=== PATIENT | female | born 1940 | race American Indian/Alaskan Native ===

== ENCOUNTER 2022-07-02 11:51 | Inpatient (IN) | payer MEDICARE, OTHER ==
[~2022-07-02] VITALS: Ht 162.6 cm; Wt 68.2 kg
[2022-07-02 12:13] LABS: BASOPHILS ABSOLUTE AUTO 0.03 K/mm3 (0.00-0.23); BASOPHILS PERCENT AUTO 1 % (0-2); EOSINOPHILS ABSOLUTE AUTO 0.08 K/mm3 (0.00-0.68); EOSINOPHILS PERCENT AUTO 1 % (0-6); Hematocrit 35.5 % (33.0-51.0); Hemoglobin 11.7 g/dL (11.5-16.0); IMMATURE GRAN ABSOLUTE AUTO 0.02 K/mm3 (0.00-0.10); IMMATURE GRAN PERCENT AUTO 0 % (0-1); LYMPHOCYTES ABSOLUTE AUTO 1.13 K/mm3 (0.84-5.20); LYMPHOCYTES PERCENT AUTO 19 % (21-46); MONOCYTES ABSOLUTE AUTO 0.48 K/mm3 (0.16-1.47); MONOCYTES PERCENT AUTO 8 % (4-13); Mean Corpuscular Volume 94 fL (80-100); Mean Platelet Volume 12.1 fL (9.1-12.4); NEUTROPHILS ABSOLUTE AUTO 4.22 K/mm3 (1.96-9.15); NEUTROPHILS PERCENT AUTO 71 % (41-73); Platelet Count 152 K/mm3 (150-400); RDW Coefficient Variation 14.6 % (11.7-14.2); RDW Standard Deviation 49.8 fL (35.1-46.3); Red Blood Cell Count 3.77 M/mm3 (3.80-5.20); White Blood Cell Count 5.96 K/mm3 (4.00-11.30)
[2022-07-02] MEDS ORDERED: WARF1 PO (12:39)
[2022-07-02 12:46] LABS: Prothrombin Time Results 48.4 Sec (9.7-11.5)
[2022-07-02 13:04] LABS: Albumin, Blood 3.4 g/dL (3.4-5.0); Albumin/Globulin Ratio 1.1 (0.8-1.8); Bilirubin, Total 0.7 mg/dL (0.1-1.0); Calcium, Blood 8.4 mg/dL (8.5-10.1); Creatinine, Blood 1.3 mg/dL (0.40-1.00); Magnesium, Blood 1.9 mg/dL (1.6-2.4); Total Protein, Blood 6.4 g/dL (6.4-8.2)
[2022-07-02 13:04] LABS: International Normalized Ratio 5.13
--- NOTE | 2022-07-02 16:59 | NUR ---
Report recieved from ED nurse. Pt to transfer to PCU 17
[2022-07-02 18:35] LABS: Digoxin (Lanoxin) 1.15 ug/mL (0.80-2.00)
--- NOTE | 2022-07-02 18:39 | NUR ---
Transfer to PCU 17 via bed Pt A/O X4, states correct location/event. States falling while cleaning, pt states I blacked out." "Was awake one moment and on floor next." Pt states having INR checked once a week at outside clinic. Unable to provide home medication, "someone will bring in list. HR 35-40, juncational. BP stable. Dr. Mendoza at bedside, order recieved for 0.5 mg of atropine, HR 40-41 after, see emar. Pt denies having CP. Ulcer on right lower extrem, see picture in chart. Right elbow wound from fall, see picture in chart, no skin tear. Dired blood on right posterior head. Crackles in lower bases, SPO2 > 95%. On RA. BT active. Daughter Marlyn Martins, and Ed at bedside. Dr. Mendoza answered all questions.
--- NOTE | 2022-07-02 19:11 | NUR ---
Shift summary/ Provider at bedside, Dr. Mendoza Provider states Atropine is not effective for rate control. Pads placed at bedside per provider request. Digixon reversal to be ordered as well per provider. Pt and family asked to bring medication list from home when possible. Tentative medication list discussed with patient based on [facility] list in chart. Dr. Mendoza also provided with this list. Daughter Sarah at bedside for the night. Will report to nightshift. Pt made aware of telling staff of any symptoms of bradcardia. HR continues to be in 40's. SPO2 100%. BP stable. Pt has extensive wounds on right lower extrem, right elbow and posterior right side of head. See pictures in chart.
[2022-07-02 20:33] LABS: Source, Urine Clean Catch
[2022-07-02 20:38] LABS: Bilirubin, Urine Neg (Neg); Blood, Urine 3+ (Neg); Glucose Qualitative, Urine Neg (Neg); Ketones, Urine Neg (Neg); Leukocyte Esterase, Urine 1+ (Neg); Nitrite, Urine Neg (Neg); Protein, Urine 1+ (Neg); Urobilinogen, Urine NORM (Normal)
[2022-07-02 20:53] LABS: Appearance, Urine Hazy (Clear); Color, Urine Yellow (P-Yellow)
[2022-07-02 20:55] LABS: Bacteria Mod /hpf; Mucus Light (0-Heavy); Squamous Epithelial Cells Rare /hpf (Few); Transitional Epithelial Cells Rare /hpf (0-Rare); White Blood Cells, Urine 0-2 /hpf (0-5)
--- NOTE | 2022-07-03 02:00 | NUR ---
TELE REPORT 4.6 SEC PAUSE REPORTED BY COUNTER STITCHER
[2022-07-03 04:18] LABS: BASOPHILS ABSOLUTE AUTO 0.03 K/mm3 (0.00-0.23); BASOPHILS PERCENT AUTO 1 % (0-2); EOSINOPHILS ABSOLUTE AUTO 0.15 K/mm3 (0.00-0.68); EOSINOPHILS PERCENT AUTO 3 % (0-6); Hematocrit 34.5 % (33.0-51.0); Hemoglobin 11.3 g/dL (11.5-16.0); IMMATURE GRAN ABSOLUTE AUTO 0.02 K/mm3 (0.00-0.10); IMMATURE GRAN PERCENT AUTO 0 % (0-1); LYMPHOCYTES ABSOLUTE AUTO 1.59 K/mm3 (0.84-5.20); LYMPHOCYTES PERCENT AUTO 26 % (21-46); MONOCYTES PERCENT AUTO 10 % (4-13); Mean Corpuscular HGB 30.5 pg (26.0-34.0); Mean Corpuscular HGB Conc 32.8 g/dL (31.5-36.5); Mean Corpuscular Volume 93 fL (80-100); Mean Platelet Volume 11.1 fL (9.1-12.4); NEUTROPHILS ABSOLUTE AUTO 3.66 K/mm3 (1.96-9.15); NEUTROPHILS PERCENT AUTO 61 % (41-73); Platelet Count 140 K/mm3 (150-400); RDW Coefficient Variation 14.4 % (11.7-14.2); RDW Standard Deviation 49.6 fL (35.1-46.3); White Blood Cell Count 6.05 K/mm3 (4.00-11.30)
[2022-07-03 04:32] LABS: International Normalized Ratio 3.52
[2022-07-03] MEDS ORDERED: FUROSEMIDE40 MG PO (04:33)
[2022-07-03 04:41] LABS: Bun/Creatinine Ratio 36.8 (12.0-20.0); Calcium, Blood 8.7 mg/dL (8.5-10.1); Creatinine, Blood 1.17 mg/dL (0.40-1.00); Potassium, Blood 4.1 mmol/L (3.5-5.5)
--- NOTE | 2022-07-03 05:24 | NUR ---
CALLED DR VALLECILLO REGARDING PT'S HR. COMMENTED TO THAT PT HAD A 4.6 SEC PAUSE AT APPROX. 0200 WAS IN JUNCTIONAL. THEN A TACHY RUN, BACK TO JUNCTIONAL IN THE 40'S UNTIL APPROX 0515 WHERE SHE BECAME SINUS TACH. ORDERS TO TRANSFER TO ICU AND PLACE TRANDERMAL PATCHES WITH ZOLL ON STANDBY.
--- NOTE | 2022-07-03 06:00 | NUR ---
IN-HOUSE TRANSFER PT TRANSFERED TO ICU-5, WITH ALL BELONGINGS VIA BED. DAUGHTER AT BEDSIDE. NURSE AND STAFF IN ROOM WAITING FOR PT.
[2022-07-03] MEDS ORDERED: ATEN25 PO (06:18)
[2022-07-03] MEDS ORDERED: ALLOPURINOL100 M1 PO (06:19)
[2022-07-03] MEDS ORDERED: DIGOX125 MC1 PO (06:19)
[2022-07-03] MEDS ORDERED: [UNRECOGNIZED DRUG - OTHER] (06:20)
[2022-07-03] MEDS ORDERED: Cetirizine HCl10 MG PO (06:20)
[2022-07-03] MEDS ORDERED: THERA-D2000 UNIT PO (06:21)
[2022-07-03] MEDS ORDERED: Simvastatin20 MG PO (06:21)
[2022-07-03] MEDS ORDERED: Potassium Chlo20 ME1 PO (06:22)
--- NOTE | 2022-07-03 06:41 | NUR ---
REPORT RECIEVED FROM WILFREDO GIL. PATIENT TO ICU 5 FROM PCU AT 0600. SLID TO BED. DAUGHTER AT BEDSIDE. PATIENT IS ALERT AND ORIENTED X4. 02 SATS 95 % ON RA, PATIENT DENIES SOB. HR A.FIB 80s-110. ZOLL AT BEDSIDE AND PADS ON PATIENT PER DR. VALLECILLO. BP STABLE. PATIENT DENIES CP/PRESSURE. PER REPORT PATIENT HAS EPISODES OF BRADYCARDIA, AM EKGs IN FRONT OF CHART. SEE SHIFT ASSESSMENT FOR MORE INFORMATION.
[2022-07-03 07:22] LABS: SARS-Cov-2 (COVID-19) PCR, MMC NEGATIVE (NEGATIVE)
--- NOTE | 2022-07-03 08:00 | NUR ---
PT A&OX4-REPORTS "MILD" HEADACHE. DENIES NEED FOR PAIN MED AT THIS TIME. THERE IS A SCAB AND SWELLING NOTED TO THE BACK OF PT HEAD. NO NEURO DEFICITS. ECG SHOWS AFIB WITH RATE 70-100'S. BP 140'S/80'S. NO NOTED EDEMA. LOWER EXTREMITIES APPEAR BROWN-VENOUS STATIS NOTED. RIGHT LOWER EXTREMITY WITH STATIS ULCER THAT PT STATES HAS BEEN THER FOR SEVERAL YEARS AND NEVER SEEMS TO COMPLETELY HEAL. WOUND PICS ON CHART.MEPITEL DRESSING, KERLIX, AND COBAN IN PLACE. DP/PT PULSES FAINT-PT HAS SIGNIFICANT VARICES TO BOTH LOWER EXTREMITIES. HEART SOUNDS IRREGULAR WITH MURMUR AUSCULTATED. LUNGS CLEAR. SATS>90%. NO NOTED COUGH. PT DENIES CP OR SOB. NPO FOR POSSIBLE PACER PLACEMENT LATER TODAY. PT DENIES GI DISTRESS. EXTENDED DWELL CATHETER PLACED AND PT/PTT, TYPE AND SCREEN SENT. PT FAMILY AT BEDSIDE-UPDATE GIVEN.
[2022-07-03 08:54] LABS: International Normalized Ratio 2.91
[2022-07-03 09:11] LABS: Prothrombin Time Results 28.5 Sec (9.7-11.5)
--- NOTE | 2022-07-03 09:30 | NUR ---
DR. ROTHMAN HERE TO SEE PT-UPDATE GIVEN.
--- NOTE | 2022-07-03 09:46 | NUR ---
ECHO IN PROGRESS.
--- NOTE | 2022-07-03 10:29 | NUR ---
DR. ARRIAGA GIVEN UPDATE. AWARE THAT INR 2.91. ORDER GIVEN FOR CARDIAC DIET, NPO AFTER MIDNIGHT TONIGHT, AND REPEAT INR IN AM.
--- NOTE | 2022-07-03 12:05 | NUR ---
PT DENIES CP OR SOB. ECG CONTINUES AFIB WITH RATE 80-100'S. SBP TRENDING 100-120'S. LUNCH TRAY PROVIDED. CALL LIGHT WITHIN REACH.
--- NOTE | 2022-07-03 16:30 | NUR ---
PT CONTINUES TO DENY CP OR SOB. ECG CONTINUES AF WITH RATE 90-110'S. SBP 110-120'S. TOLERATING CARDIAC DIET WELL. PT HAS HISTORY OF LOOSE STOOLS AT HOME AND HER GLUTEAL FOLD AND ANUS APPEAR RED AND EXCORIATED-CLEANSED WITH SOAP AND WATER AND CALAZIME APPLIED. ENCOURAGE PT TO STAY OFF OF HER BACKSIDE MUCH POSSIBLE. ASSISTED PT WITH TURNING TO RIGHT SIDE. CALL LIGHT WITHIN REACH.
--- NOTE | 2022-07-03 17:00 | NUR ---
DR. ARRIAGA HERE TO SEE PT-UPDATE GIVEN. INFORMED CONSENT OBTAINED FOR PPM 07/04/22 AM. PT TO BE NPO AFTER MIDNOC.
--- NOTE | 2022-07-03 17:59 | NUR ---
NO NOTED BRADYCARDIA OR PAUSES THIS SHIFT. PT CONTINUES TO DENY CHEST PAIN OR SHORTNESS OF BREATH. HR 100-120'S AFIB. SBP 110-120'S. SATS>90% ON RA. PT TOLERATING CARDIAC DIET WELL. VOIDING VIA BEDPAN-PT CALLS FOR ASSIST PRN. CALAZIME TO EXCORIATED AREA TO PT BACKSIDE. ENCOURAGED FREQUENT REPOSITIONING AND MINIMAL TIME SUPINE. PT VERBALIZES BOTH UNDERSTANDING AND COOPERATION. PHARMACY HAS BEEN CONSULTED FOR WARFARIN DOSING. INFORMED CONSENT FOR PPM PLACEMENT 07/04/22.
--- NOTE | 2022-07-03 20:30 | NUR ---
ASSUMED CARE PT IS ALERT AND ORIENTED. SITTING IN BED RELAXING AND READY FOR SLEEP. MONITOR SHOWING AFIB UP INTO THE 130'S WHILE TALKING AND BACK DOWN INTO 90'S WHILE RESTING. PT IS ON RA WITH NO COMPLAINTS OF SOB OR CP. VERBALIZED UNDERSTANDING OF NPO STATUS AT MIDNIGHT. PACERS PADS IN PLACE.
--- NOTE | 2022-07-03 23:47 | NUR ---
PATIENT AWAKE C/O RIGHT LOWER LEG ITCHING, PATIENT REMOVED DRESSING ON LEG AND SCRATCHING RED AREA OPENING UP A SMALL 1X1 CM ROUND AREA. AREA CLEANSED WITH WOUND COLLABORATIVE TEACHER AND COVERED WITH FOAM DRESSING AND KERLIX GAUZE TO KEEP IN PLACE PATIENT CONTINUES TO C/O ITCHING FEELING TO RIGHT ANKLE, DRESSING ADJUSTED AND TYLENOL GIVEN
[2022-07-04 04:05] LABS: BASOPHILS ABSOLUTE AUTO 0.03 K/mm3 (0.00-0.23); BASOPHILS PERCENT AUTO 1 % (0-2); EOSINOPHILS ABSOLUTE AUTO 0.11 K/mm3 (0.00-0.68); EOSINOPHILS PERCENT AUTO 2 % (0-6); Hemoglobin 12.2 g/dL (11.5-16.0); IMMATURE GRAN ABSOLUTE AUTO 0.01 K/mm3 (0.00-0.10); IMMATURE GRAN PERCENT AUTO 0 % (0-1); LYMPHOCYTES ABSOLUTE AUTO 1.48 K/mm3 (0.84-5.20); LYMPHOCYTES PERCENT AUTO 26 % (21-46); MONOCYTES ABSOLUTE AUTO 0.55 K/mm3 (0.16-1.47); MONOCYTES PERCENT AUTO 10 % (4-13); Mean Corpuscular HGB 30.6 pg (26.0-34.0); Mean Corpuscular Volume 93 fL (80-100); Mean Platelet Volume 10.6 fL (9.1-12.4); NEUTROPHILS ABSOLUTE AUTO 3.47 K/mm3 (1.96-9.15); NEUTROPHILS PERCENT AUTO 62 % (41-73); Platelet Count 149 K/mm3 (150-400); RDW Coefficient Variation 14.3 % (11.7-14.2); RDW Standard Deviation 48.5 fL (35.1-46.3); Red Blood Cell Count 3.99 M/mm3 (3.80-5.20); White Blood Cell Count 5.65 K/mm3 (4.00-11.30)
[2022-07-04 04:20] LABS: Albumin, Blood 3.3 g/dL (3.4-5.0); Anion Gap 6 mmol/L (6-16); Blood Urea Nitrogen 21 mg/dL (8-24); CO2, Blood 24 mmol/L (21-32); Calcium, Blood 9.1 mg/dL (8.5-10.1); Chloride, Blood 112 mmol/L (98-108); Creatinine, Blood 0.73 mg/dL (0.40-1.00); Glomerular Filtration Rate 83 (60-); Glucose, Blood 93 mg/dL (70-99); Phosphorus, Blood 2.4 mg/dL (2.5-4.9); Potassium, Blood 3.8 mmol/L (3.5-5.5); Sodium, Blood 142 mmol/L (136-145)
[2022-07-04 04:23] LABS: International Normalized Ratio 1.7; Prothrombin Time Results 17.2 Sec (9.7-11.5)
--- NOTE | 2022-07-04 04:32 | NUR ---
PT FOUND STANDING AT SIDE OF BED, APPEARS CONFUSED YET EASILY REORIENTED. BED ALARM REMAINS ON.
--- NOTE | 2022-07-04 06:37 | NUR ---
SHIFT SUMMARY PT RESTLESS THROUGH THE NIGHT WITH FREQUENT LOOSE BOWEL MOVEMENTS, WHICH PT VERBALIZED IS NORMAL FOR HER. PT REMAINS ON BEDREST DUE TO HX OF SYNCOPE. PLANNED PACEMAKER IMPLANTED TODAY. PT HAS CLEAR LUNG SOUNDS WITH CRACKLES IN THE BASES. SPO2 >94% ON RA. PT IS AFIB WITH HR 80-90S AND GOING UP TO 140S WITH EXERTION.
--- NOTE | 2022-07-04 08:00 | NUR ---
PT IS AWAKE AND ALERT, BUT VERY FORGETFUL THIS AM AND HALLUCINATING AT TIMES. PT STATES THAT "THERE ARE CATS ALL AROUND THE POND OUTSIDE HER WINDOW." PT RE-ORIENTS WITH CUES. ECG SHOWS AFIB WITH RATE 80'S. BP STABLE. NO NOTED EDEMA. DP/PT PULSES FAINT. STATIS CHANGES TO LOWER EXTREMITIES UNCHANGED. WOUND CARE COMPLETED TO RIGHT LOWER EXTREMITY STATIS ULCER. ACCORDING TO MANAGER PHARMACEUTICAL, PT SCRATCHED THE LEG LAST NIGHT LEAVING HER WITH 2 OPEN AREAS-ONE TO THE LANGFORD AND ONE NEAR THE ANKLE. WOUND CLEANSED, MEPITEL APPLIED, COVERED WITH ABD, KERLIX, AND COBAN. LUNGS CLEAR. NO SOB OR COUGH. SATS>90% NO GI DISTRESS. PT VOIDS AND STOOLS VIA BEDPAN-INCONTINENT AT TIMES. PT ANUS AND GLUTEAL FOLD STILL EXCORIATED. PT GIVEN BED BATH, PARTIAL LINEN CHANGE COMPLETED, SKIN CARE DONE-CALAZIME TO EXCORIATED AREA-PT REPOSITIONED TO RIGHT SIDE. ENCOURAGE PT TO TURN EVERY [address] ARRIAGA UPDATED OF INR OF 1.7. PPM ON HOLD. PHARMACY CONSULTED FOR HEPARIN. KENYA FROM PHARMACY AWARE. PT AND FAMILY UPDATED TO PLAN OF CARE. CALL LIGHT WITHIN REACH.
--- NOTE | 2022-07-04 09:20 | NUR ---
HEPARIN DRIP INITIATED @ 15 UNITS/KG/HR-CONFIRMED WITH LOUISE JEFFERS.
--- NOTE | 2022-07-04 09:34 | NUR ---
Spiritual Care - Nurse/ Pts. family referral Pt. is awake in bed and welcomes my visit. Pts. family (two daughters are present, one is on speaker phone) requests prayer for the Pt. Pt. is unsettled about her blood coagulation (INR) to be controlled so she can have pacemaker procedure. Pt. is pleasant and has displays evidence of having good support from her family. Prayed with Pt. and family. Pt. and family verbalize gratitude for the spiritual care visit.
--- NOTE | 2022-07-04 11:45 | NUR ---
PT REMAINS DISORIENTED AND CONFUSED AT TIMES. PT STILL FOLLOWING DIRECTIONS AND COOPERATIVE WITH CARE. SHE HAS ATTEMPTED TO GET OOB AND BED ALARM IS ON. ECG CONTINUES AFIB WITH RATE 70-80'. BP REMAINS STABLE. NO CP OR SOB. HEPARIN DRIP @ 15 UNITS/KG/HR. COUMADIN 1.5 MG PO GIVEN PER PHARMACY ORDER-SEE EMAR.
--- NOTE | 2022-07-04 12:00 | NUR ---
DR. FOREMAN HERE TO SEE PT. FULL UPDATE GIVEN. DR. FOREMAN SPOKE WITH PT DAUGHTER REGARDING PLAN OF CARE. PREP PT FOR TRIALYSIS CATHETER PLACEMENT. KASHMIR IN DIALYSIS MADE AWARE. DR. NIÑO TO SEE PT LATER TODAY. PT EYES OPEN AND GRIMACING. MED WITH FENTANYL 50 MCG IVP X 1 FOR PAIN/SEDATION ADJUNCT-PRIOR TO DIALYSIS CATHETER PLACEMENT-SEE EMAR.
--- NOTE | 2022-07-04 14:22 | NUR ---
DR. ROTHMAN MADE AWARE OF POSITIVE URINE CULTURE. ANTIBIOTICS TO BE ORDERED BY DR. ROTHMAN.
--- NOTE | 2022-07-04 15:30 | NUR ---
PTT DRAWN VIA EXTENDED DWELL CATHETER AND SENT TO LAB. 1ST DOSE OF UNASYN GIVEN.
--- NOTE | 2022-07-04 16:00 | NUR ---
PT REMAINS CONFUSED, BUT NO LONGER HALLUCINATING. SHE IS ABLE TO COMMUNICATE HER NEEDS AT THIS TIME AND HAS BEEN UTILIZING CALL LIGHT. ECG CONTINUES AFIB WITH RATE 70'S. BP STABLE. NO CP OR SOB. PT TOLERATING CARDIAC DIET WELL. PT HAS FREQUENT LOOSE STOOLS-SHE STATES THAT THIS IS HER NORM. KYLEE AREA, ANUS, AND GLUTEAL FOLD EXCORIATED AND CALAZIME APPLIED. PTT THERAPEUTIC-HEPARIN CONTINUES @ 15 UNIT/KG/HR. NEXT PTT @ 2200. PT SPOUSE AND FAMILY MEMBERS HAVE BEEN UPDATED THROUGH OUT THE DAY.
--- NOTE | 2022-07-04 22:44 | NUR ---
ASSUMED CARE PT IS LYING IN BED ALERT AND ORIENTED WITH INTERMITTANT CONFUSION. PT OCCASIONALLY DOES NOT RESPOND APPROPRIATELY TO QUESTIONS AND STATED, "DO YOU SEE THAT CAT THERE?" BUT SAID "I KNOW" WHEN TOLD THAT IT WAS A BLANKET. PT'S HR'S IN THE 80-90'S AND UP INTO THE 120S WITH EXERTION. PT HR TACHYED UP TO 200 WHEN TRYING TO GET OUT OF BED, BUT RAPIDLY CAME BACK DOWN WHEN BACK IN BED. PT HAS CLEAR LUNG SOUNDS WITH DIM BASES AND CRACKLES IN LEFT BASE. PT'S DAUGHTER CALLED AT 2230 WITH CONCERNS ABOUT PT'S INCREASING CONFUSION. INFORMED DAUGHTER THAT EXTENDED HOSPITAL STAY+UTI CAN INCREASE CONFUSION.
--- NOTE | 2022-07-05 00:56 | NUR ---
UPDATE PT WOKE SEVERAL TIMES THROUGHOUT THE NIGHT VERBALIZING THE DESIRE TO GO HOME. WAS ABLE TO REORIENT EACH TIME FOR PURPOSE OF HOSPITAL STAY AND MENTIONED FAMILY COMING IN THE NEXT MORNING TO HELP ALLIEVE AGITATION.
--- NOTE | 2022-07-05 04:28 | NUR ---
UPDATE PT IS HALLUCINATING CATS, CHILDREN, AND SPIDERS.
[2022-07-05 04:46] LABS: BASOPHILS ABSOLUTE AUTO 0.02 K/mm3 (0.00-0.23); BASOPHILS PERCENT AUTO 0 % (0-2); EOSINOPHILS ABSOLUTE AUTO 0.13 K/mm3 (0.00-0.68); EOSINOPHILS PERCENT AUTO 3 % (0-6); Hematocrit 36.5 % (33.0-51.0); IMMATURE GRAN ABSOLUTE AUTO 0.02 K/mm3 (0.00-0.10); IMMATURE GRAN PERCENT AUTO 0 % (0-1); LYMPHOCYTES ABSOLUTE AUTO 1.62 K/mm3 (0.84-5.20); LYMPHOCYTES PERCENT AUTO 32 % (21-46); MONOCYTES ABSOLUTE AUTO 0.49 K/mm3 (0.16-1.47); MONOCYTES PERCENT AUTO 10 % (4-13); Mean Corpuscular HGB 30.5 pg (26.0-34.0); Mean Corpuscular HGB Conc 32.9 g/dL (31.5-36.5); Mean Corpuscular Volume 93 fL (80-100); Mean Platelet Volume 10.3 fL (9.1-12.4); NEUTROPHILS ABSOLUTE AUTO 2.85 K/mm3 (1.96-9.15); NEUTROPHILS PERCENT AUTO 56 % (41-73); Platelet Count 146 K/mm3 (150-400); RDW Coefficient Variation 14.6 % (11.7-14.2); Red Blood Cell Count 3.94 M/mm3 (3.80-5.20); White Blood Cell Count 5.13 K/mm3 (4.00-11.30)
[2022-07-05 05:01] LABS: Albumin, Blood 3.1 g/dL (3.4-5.0); Anion Gap 5 mmol/L (6-16); Blood Urea Nitrogen 12 mg/dL (8-24); Bun/Creatinine Ratio 17.8 (12.0-20.0); CO2, Blood 24 mmol/L (21-32); Calcium, Blood 8.3 mg/dL (8.5-10.1); Chloride, Blood 112 mmol/L (98-108); Creatinine, Blood 0.67 mg/dL (0.40-1.00); Glomerular Filtration Rate 88 (60-); Glucose, Blood 90 mg/dL (70-99); Phosphorus, Blood 2.1 mg/dL (2.5-4.9); Potassium, Blood 3.7 mmol/L (3.5-5.5); Sodium, Blood 141 mmol/L (136-145)
[2022-07-05 05:08] LABS: International Normalized Ratio 1.48; Prothrombin Time Results 15.1 Sec (9.7-11.5)
--- NOTE | 2022-07-05 06:19 | NUR ---
SHIFT SUMMARY PT REMAINS CONFUSED AND HAS BEEN HALLUCINATING SPIDERS, CHILDREN, AND CATS THROUGHOUT THE NIGHT. PT'S BP HAS REMAINED STABLE WITH HR AFIB IN THE 70-80'S, GOING UP INTO THE 100S WITH EXERTION. LUNG SOUNDS ARE CLEAR WITH CRACKLES IN THE LEFT LOWER LOBES AND SPO2 >95 ON RA. PT IS REORIENTABLE WHEN DISCUSSING WHY PT IS HERE AND PT'S FAMILY. PT'S HEPARIN HAS BEEN TITRATED DOWN TO 13MCG/KG/HR. PT DID NOT SLEEP WELL THROUGHOUT NIGHT, WAKING FREQUENTLY AND ATTEMPTING TO GET OUT OF BED. PT HAD LOOSE STOOLS SEVERAL TIMES THROUGHOUT THE NIGHT AND THIS RN WAS INFORMED BY PREVIOUS NURSE THAT SHE DID NOT WANT THIS RN TO HELP WITH USING THE RESTROOM.
--- NOTE | 2022-07-05 13:37 | NUR ---
REASSESSMENT PT HAS BEEN RESTING IN BED FOR MOST OF THE MORNING. SHE GETS UP TO THE COMMODE WITH ASSISTANCE AND THEN WANTS BACK TO BED TO REST. BEFORE GETTING UP TO THE COMMODE THE FIRST TIME, THE RISKS OF GETTING OUT OF BED BECAUSE OF HER HEART RHYTHM AND PAUSES EARLIER IN HER STAY WERE REVIEWED WITH PT AND HER FAMILY THAT WAS AT THE BEDSIDE. THEY ALL EXPRESSED UNDERSTANDING OF THE RISKS AND PT STILL INSISTED ON GETTING UP TO THE COMMODE INSTEAD OF USING THE BEDPAN. PT IS ALERT, ORIENTED TO PERSON AND DATE. SHE IS CONFUSED, TALKING ABOUT PEOPLE VISITING LAST NIGHT AND THINGS SHE THINKS HAPPENED OVERNIGHT, BUT DIDN'T. LUGNS ARE CLEAR, RA. AFIB WITH RATE IN THE 70S, BP STABLE. OK'D TO EAT BY DR. ARRIAGA AND TOLERATING DIET. VOIDING, BUT UNABLE TO COUNT VOLUME IT MIXES WITH HER LOOSE STOOLS. DRESSING OVER R LANGFORD CHANGED THIS MORNING. PT'S AND DAUGHTERS HAVE BEEN AT THE BEDSIDE THROUGHOUT THE MORNING.THEY WERE UPDATED BY DR. ARRIAGA AND DR. ROTHMAN. AWAITING A BED TO BE AVAILABLE AT [facility]. DR. ROTHMAN OK'D PT TO BE PCU STATUS.
--- NOTE | 2022-07-05 17:11 | NUR ---
SHIFT SUMMARY PT CONTINUES TO BE CONFUSED. ALERT AND ORIENTED TO PERSON AND DATE, BUT GETS CONFUSED WHERE SHE IS. DESPITE REORIENTATION SHE THINKS THERE IS A YARD SALE GOING ON OUTSIDE HER ROOM AND THINKS HER BED IS A BIG HEATER BECAUSE OF AN ORANGE LIGHT ON IT. SHE HAS ALSO BEEN HALLUCINATING THIS AFTERNOON SEEING SPIDERS ON THE WALL WHEN THERE AREN'T ANY. PT HAS STILL BEEN COOPERATIVE EXCEPT FOR NOT GETTING UP WITHOUT HELP. TAB ALARM ON PT WHIEL IN CHAIR AND BED ALARM WHILE IN BED. HER LUNGS ARE CLEAR, RA. REMAINS IN AFIB, RATE IN THE 80S. BP STABLE. SHE HAS HAD SOME CRAMPING IN HER L FOOT, HEATING PAD APPLIED. VOIDING IN THE COMMODE AND LOOSE STOOLS. STARTED BANANTROL TO TRY AND HELP WITH THE DIARRHEA. FAMILY HAS BEEN AT THE BEDSIDE THROUGHOUT THE DAY AND HAS BEEN UPDATED. STILL WAITING ON BED AT [facility].
[2022-07-06 03:46] LABS: BASOPHILS ABSOLUTE AUTO 0.02 K/mm3 (0.00-0.23); BASOPHILS PERCENT AUTO 0 % (0-2); EOSINOPHILS ABSOLUTE AUTO 0.15 K/mm3 (0.00-0.68); EOSINOPHILS PERCENT AUTO 3 % (0-6); Hematocrit 34.2 % (33.0-51.0); Hemoglobin 11.2 g/dL (11.5-16.0); IMMATURE GRAN ABSOLUTE AUTO 0.02 K/mm3 (0.00-0.10); IMMATURE GRAN PERCENT AUTO 0 % (0-1); LYMPHOCYTES ABSOLUTE AUTO 1.48 K/mm3 (0.84-5.20); LYMPHOCYTES PERCENT AUTO 29 % (21-46); MONOCYTES ABSOLUTE AUTO 0.52 K/mm3 (0.16-1.47); MONOCYTES PERCENT AUTO 10 % (4-13); Mean Corpuscular HGB 30.6 pg (26.0-34.0); Mean Corpuscular HGB Conc 32.7 g/dL (31.5-36.5); Mean Corpuscular Volume 93 fL (80-100); Mean Platelet Volume 10.2 fL (9.1-12.4); NEUTROPHILS PERCENT AUTO 57 % (41-73); Platelet Count 142 K/mm3 (150-400); RDW Coefficient Variation 14.7 % (11.7-14.2); RDW Standard Deviation 50.5 fL (35.1-46.3); Red Blood Cell Count 3.66 M/mm3 (3.80-5.20); White Blood Cell Count 5.09 K/mm3 (4.00-11.30)
[2022-07-06 04:01] LABS: International Normalized Ratio 1.36
[2022-07-06 04:03] LABS: Albumin, Blood 2.8 g/dL (3.4-5.0); Anion Gap 3 mmol/L (6-16); Blood Urea Nitrogen 14 mg/dL (8-24); Bun/Creatinine Ratio 31.6 (12.0-20.0); CO2, Blood 25 mmol/L (21-32); Calcium, Blood 8.1 mg/dL (8.5-10.1); Chloride, Blood 112 mmol/L (98-108); Creatinine, Blood 0.44 mg/dL (0.40-1.00); Glomerular Filtration Rate 97 (60-); Glucose, Blood 93 mg/dL (70-99); Phosphorus, Blood 2.5 mg/dL (2.5-4.9); Potassium, Blood 3.8 mmol/L (3.5-5.5); Sodium, Blood 140 mmol/L (136-145)
--- NOTE | 2022-07-06 06:33 | NUR ---
END OF SHIFT REPORT PATIENT SLEPT THROUGHOUT SHIFT. INTERMITTENTLY ORIENTED TO SELF, DATE, AND PLACE. EASILY REORIENTED. FOLLOWS COMMANDS, NO DEFICITS NOTED. COMPLAINT OF SLIGHT HEADACHE, TENDER SPOT ON HEAD. PERRLA. RA, NO SOB LUNGS CLEAR. AFIB ON MONITOR WITH RATE IN THE 70'S. BP CONTROLLED. 2/2 PULSES. ONE LIQUID BM OVERNIGHT. NO UOP OVERNIGHT. BLADDER SCANNED FOR 317. VSS PLAN TO TRANSFER TODAY. RADHA JACOBSON RN
--- NOTE | 2022-07-06 09:09 | NUR ---
ASSUMED CARE REPORT FROM VIKI GIL AT 0700. PT RESTING IN BED. FAMILY AT BEDSIDE. A&OX 3. ANSWERS QUESTIONS APPROPRIATELY. KNOWS CARE PLAN. ANTICIPATING TRANSFER TO [facility] FOR PACEMAKER PLACEMENT. FAMILY UPDATED ON PROGRESS. PT DENIES SOB, DIZZINESS OR OTHER SYMPTOMS. AFIB ON MONITOR, RATE 70-80'S. BP STABLE. PT P/W/D. LUNGS CLEAR. PT C/O PAIN TO ARCH OF LEFT FOOT, CONCERNED SHE INJURED IN FALL. NO VISIBLE INJURIES NOTED. P/W/D. PPP. REPORTS INCREASED PAIN WHEN APPLYING PRESSURE. PT UP TO CHAIR. TOLERATED BREAKFAST WELL. HEPARIN GTT INFUSING, BRIDGING TO COUMDIN. DR ARRIAGA ROUNDED. WILL CONTINUE TO MONITOR UNTIL TRANSFER.
== END 2022-07-06 12:30 | disposition short-term general hospital (02) | DRG 309 ==
LOC: ER 11:51 → PCU 16:24 → ICUE 07-03 05:59
PROVIDERS: Emergency Medicine; Internal Medicine Cardiovascular Disease; ADMIT Family Medicine
DX: I49.5 Sick sinus syndrome (principal); E87.1 Hypo-osmolality and hyponatremia; I48.21 Permanent atrial fibrillation; N39.0 Urinary tract infection, site not specified; R55 Syncope and collapse; B95.2 Enterococcus as the cause of diseases classified elsewhere; Z79.01 Long term (current) use of anticoagulants; Z95.2 Presence of prosthetic heart valve; I27.20 Pulmonary hypertension, unspecified; E83.39 Other disorders of phosphorus metabolism; I34.0 Nonrheumatic mitral (valve) insufficiency; Y92.009 Unspecified place in unspecified non-institutional (private) residence as the place of occurrence of the external cause; W01.10XA Fall on same level from slipping, tripping and stumbling with subsequent striking against unspecified object, initial encounter; Z90.710 Acquired absence of both cervix and uterus; Z98.890 Other specified postprocedural states; Z88.5 Allergy status to narcotic agent; Z88.6 Allergy status to analgesic agent; D75.839 Thrombocytosis, unspecified; S09.90XA Unspecified injury of head, initial encounter; Z20.822 Contact with and (suspected) exposure to COVID-19
CPT/HCPCS: 36415; 70450; 71045; 72125; 73620; 80048; 80053; 80069; 80162; 81001; 83735; 83880; 84443; 84484; 85025; 85610; 85730; 86850; 86900; 86901; 87077; 87086; 87186; 93005; 93010; 93308; 93321; 96374; 96375; 99285-25; A9270; C1751; G0378; J0290; J0295; J0461; J0690; J1162; J1644; J7040; J7050; U0004

== ENCOUNTER 2022-07-09 11:52 | Emergency (ER) | payer MEDICARE, OTHER ==
[~2022-07-09] VITALS: Ht 160 cm; Wt 70.3 kg
[~2022-07-09 11:52] MED LIST: ALLOPURINOL100 M1 PO; ATEN25 PO; Cetirizine HCl10 MG PO; DIGOX125 MC1 PO; FUROSEMIDE40 MG PO; Potassium Chlo20 ME1 PO; Simvastatin20 MG PO; THERA-D2000 UNIT PO; WARF1 PO; [UNRECOGNIZED DRUG - OTHER]
[2022-07-09 12:22] LABS: BASOPHILS ABSOLUTE AUTO 0.03 K/mm3 (0.00-0.23); BASOPHILS PERCENT AUTO 0 % (0-2); EOSINOPHILS ABSOLUTE AUTO 0.09 K/mm3 (0.00-0.68); EOSINOPHILS PERCENT AUTO 1 % (0-6); Hematocrit 30.4 % (33.0-51.0); Hemoglobin 10.1 g/dL (11.5-16.0); IMMATURE GRAN ABSOLUTE AUTO 0.04 K/mm3 (0.00-0.10); IMMATURE GRAN PERCENT AUTO 0 % (0-1); LYMPHOCYTES ABSOLUTE AUTO 1.03 K/mm3 (0.84-5.20); LYMPHOCYTES PERCENT AUTO 9 % (21-46); MONOCYTES ABSOLUTE AUTO 0.77 K/mm3 (0.16-1.47); MONOCYTES PERCENT AUTO 7 % (4-13); Mean Corpuscular HGB 31.6 pg (26.0-34.0); Mean Corpuscular HGB Conc 33.2 g/dL (31.5-36.5); Mean Corpuscular Volume 95 fL (80-100); NEUTROPHILS ABSOLUTE AUTO 9.24 K/mm3 (1.96-9.15); NEUTROPHILS PERCENT AUTO 82 % (41-73); Platelet Count 162 K/mm3 (150-400); RDW Coefficient Variation 15.4 % (11.7-14.2); RDW Standard Deviation 52.7 fL (35.1-46.3)
[2022-07-09 12:37] LABS: Albumin, Blood 3.3 g/dL (3.4-5.0); Bilirubin, Total 0.8 mg/dL (0.1-1.0); Bun/Creatinine Ratio 18.4 (12.0-20.0); Calcium, Blood 8.9 mg/dL (8.5-10.1); Creatinine, Blood 0.71 mg/dL (0.40-1.00); Globulin, Blood 3.4 g/dL (2.2-4.0); Potassium, Blood 4.5 mmol/L (3.5-5.5); Total Protein, Blood 6.7 g/dL (6.4-8.2)
[2022-07-09] MEDS ORDERED: OXYC5 PO (12:41)
== END 2022-07-09 13:04 | disposition home or self-care (01) ==
LOC: ER 11:52
PROVIDERS: Student in an Organized Health Care Education/Training Program
DX: L76.22 Postprocedural hemorrhage of skin and subcutaneous tissue following other procedure (principal); M25.552 Pain in left hip; R10.9 Unspecified abdominal pain; Y83.8 Other surgical procedures as the cause of abnormal reaction of the patient, or of later complication, without mention of misadventure at the time of the procedure; Z95.2 Presence of prosthetic heart valve; Z95.0 Presence of cardiac pacemaker
CPT/HCPCS: 80053; 85025

== ENCOUNTER 2022-07-15 12:34 | Emergency (ER) | payer MEDICARE, OTHER ==
[~2022-07-15] VITALS: Ht 193 cm; Wt 68.0 kg
[~2022-07-15 12:34] MED LIST changes: +OXYC5 PO
[2022-07-15] MEDS ORDERED: LIDOCAINE1 EACH TOP (13:17)
[2022-07-15] MEDS ORDERED: METO5 PO (13:17)
[2022-07-15 13:54] LABS: Alanine Aminotransfer (ALT/SGP 97 U/L (12-78); Albumin, Blood 2.6 g/dL (3.4-5.0); Albumin/Globulin Ratio 0.7 (0.8-1.8); Alk Phos 107 U/L (50-136); Anion Gap 8 mmol/L (6-16); Aspartate Aminotrans (AST/SGOT 126 U/L (12-37); BASOPHILS ABSOLUTE AUTO 0.04 K/mm3 (0.00-0.23); BASOPHILS PERCENT AUTO 0 % (0-2); Bilirubin, Total 1.2 mg/dL (0.1-1.0); Blood Urea Nitrogen 39 mg/dL (8-24); Bun/Creatinine Ratio 43.7 (12.0-20.0); CO2, Blood 32 mmol/L (21-32); Calcium, Blood 8.5 mg/dL (8.5-10.1); Chloride, Blood 90 mmol/L (98-108); Creatinine, Blood 0.89 mg/dL (0.40-1.00); EOSINOPHILS ABSOLUTE AUTO 0.13 K/mm3 (0.00-0.68); EOSINOPHILS PERCENT AUTO 1 % (0-6); Globulin, Blood 3.8 g/dL (2.2-4.0); Glomerular Filtration Rate 65 (60-); Glucose, Blood 94 mg/dL (70-99); Hematocrit 22.7 % (33.0-51.0); Hemoglobin 7.3 g/dL (11.5-16.0); IMMATURE GRAN ABSOLUTE AUTO 0.08 K/mm3 (0.00-0.10); IMMATURE GRAN PERCENT AUTO 1 % (0-1); LYMPHOCYTES ABSOLUTE AUTO 1.21 K/mm3 (0.84-5.20); LYMPHOCYTES PERCENT AUTO 10 % (21-46); MONOCYTES ABSOLUTE AUTO 1.07 K/mm3 (0.16-1.47); MONOCYTES PERCENT AUTO 9 % (4-13); Mean Corpuscular HGB 30.7 pg (26.0-34.0); Mean Corpuscular HGB Conc 32.2 g/dL (31.5-36.5); Mean Corpuscular Volume 95 fL (80-100); Mean Platelet Volume 9.7 fL (9.1-12.4); NEUTROPHILS ABSOLUTE AUTO 9.44 K/mm3 (1.96-9.15); NEUTROPHILS PERCENT AUTO 79 % (41-73); NRBC ABSOLUTE 0.02 K/mm3 (0.00-0.02); NRBC Auto 0.2 /100 WBC (0.0-0.2); Platelet Count 276 K/mm3 (150-400); Potassium, Blood 2.9 mmol/L (3.5-5.5); RDW Standard Deviation 54.6 fL (35.1-46.3); Red Blood Cell Count 2.38 M/mm3 (3.80-5.20); Sodium, Blood 130 mmol/L (136-145); Total Protein, Blood 6.4 g/dL (6.4-8.2); White Blood Cell Count 11.97 K/mm3 (4.00-11.30)
[2022-07-15 13:56] LABS: International Normalized Ratio 2.27; Prothrombin Time Results 22.6 Sec (9.7-11.5)
== END 2022-07-15 17:30 | disposition home or self-care (01) ==
LOC: ER 12:34
PROVIDERS: Emergency Medicine
DX: T50.1X1A Poisoning by loop [high-ceiling] diuretics, accidental (unintentional), initial encounter (principal); T44.7X1A Poisoning by beta-adrenoreceptor antagonists, accidental (unintentional), initial encounter; T46.0X1A Poisoning by cardiac-stimulant glycosides and drugs of similar action, accidental (unintentional), initial encounter; I95.89 Other hypotension; Y92.9 Unspecified place or not applicable; I48.91 Unspecified atrial fibrillation; Z95.4 Presence of other heart-valve replacement; Z95.0 Presence of cardiac pacemaker; Z79.899 Other long term (current) drug therapy; Z79.01 Long term (current) use of anticoagulants; Z88.5 Allergy status to narcotic agent; Z91.09 Other allergy status, other than to drugs and biological substances
CPT/HCPCS: 36415; 73502; 80053; 80162; 85025; 85610

== ENCOUNTER 2022-07-21 12:48 | Day surgery (SDC) | payer MEDICARE, OTHER ==
[~2022-07-21 12:48] MED LIST changes: +LIDOCAINE1 EACH TOP; +METO5 PO
--- NOTE | 2022-07-21 18:21 | NUR ---
LUNGS WITH SLIGHT INSPIRATORY CRACKLES TO BASES PRE AND POST BLOOD TRANSUFION. CRACKLES SLIGHTLY IMPROVE WITH COUGH AND DEEP BREATHING.
== END 2022-07-21 18:16 | disposition home or self-care (01) ==
LOC: ATC 12:48
DX: D62 Acute posthemorrhagic anemia (principal); I48.21 Permanent atrial fibrillation; I27.20 Pulmonary hypertension, unspecified; Z95.4 Presence of other heart-valve replacement
CPT/HCPCS: 36430; 86850; 86900; 86901; 86923; J7040; P9016

== ENCOUNTER → 2023-05-02 | Outpatient (CLI) | payer MEDICARE, OTHER ==
[~2023-05-02] MED LIST changes: +BUME2 PO
== END | disposition home or self-care (01) ==
LOC: LAB SHORT 12:30 → LAB 12:30
DX: E83.52 Hypercalcemia (principal)
CPT/HCPCS: 84132

== ENCOUNTER 2023-05-31 19:26 | Emergency (ER) | payer MEDICARE, OTHER ==
[~2023-05-31] VITALS: Ht 160 cm; Wt 63.5 kg
[2023-05-31 20:30] VITALS: BP 125/49
[2023-05-31 20:44] LABS: BASOPHILS ABSOLUTE AUTO 0.04 K/mm3 (0.00-0.23); BASOPHILS PERCENT AUTO 1 % (0-2); EOSINOPHILS ABSOLUTE AUTO 0.26 K/mm3 (0.00-0.68); EOSINOPHILS PERCENT AUTO 4 % (0-6); Hematocrit 31.8 % (33.0-51.0); Hemoglobin 10.2 g/dL (11.5-16.0); IMMATURE GRAN ABSOLUTE AUTO 0.03 K/mm3 (0.00-0.10); IMMATURE GRAN PERCENT AUTO 0 % (0-1); LYMPHOCYTES ABSOLUTE AUTO 1.58 K/mm3 (0.84-5.20); LYMPHOCYTES PERCENT AUTO 22 % (21-46); MONOCYTES ABSOLUTE AUTO 0.54 K/mm3 (0.16-1.47); MONOCYTES PERCENT AUTO 8 % (4-13); Mean Corpuscular HGB Conc 32.1 g/dL (31.5-36.5); Mean Corpuscular Volume 97 fL (80-100); Mean Platelet Volume 10.4 fL (9.1-12.4); NEUTROPHILS PERCENT AUTO 65 % (41-73); Platelet Count 165 K/mm3 (150-400); RDW Standard Deviation 63.9 fL (35.1-46.3); Red Blood Cell Count 3.29 M/mm3 (3.80-5.20); White Blood Cell Count 7.05 K/mm3 (4.00-11.30)
[2023-05-31 21:08] LABS: Prothrombin Time Results 53.2 Sec (9.7-11.5)
[2023-05-31 21:16] LABS: International Normalized Ratio 5.58
== END 2023-05-31 22:45 | disposition home or self-care (01) ==
LOC: ER 19:26
PROVIDERS: Student in an Organized Health Care Education/Training Program
DX: R04.0 Epistaxis (principal); T45.515A Adverse effect of anticoagulants, initial encounter; I48.91 Unspecified atrial fibrillation; Z88.5 Allergy status to narcotic agent; Z91.048 Other nonmedicinal substance allergy status; Z79.899 Other long term (current) drug therapy; Z79.01 Long term (current) use of anticoagulants; Z95.2 Presence of prosthetic heart valve
CPT/HCPCS: 30901; 85025; 85610; 99284-25; A9270; J3430

== ENCOUNTER 2023-09-14 22:02 | Emergency (ER) | payer MEDICARE, OTHER ==
[~2023-09-14] VITALS: Ht 162.6 cm; Wt 63.5 kg
[2023-09-14 22:37] LABS: Source, Urine Straight Cath
[2023-09-14 22:41] LABS: BASOPHILS ABSOLUTE AUTO 0.04 K/mm3 (0.00-0.23); BASOPHILS PERCENT AUTO 0 % (0-2); EOSINOPHILS ABSOLUTE AUTO 0.14 K/mm3 (0.00-0.68); EOSINOPHILS PERCENT AUTO 1 % (0-6); Hematocrit 32.8 % (33.0-51.0); Hemoglobin 11.1 g/dL (11.5-16.0); IMMATURE GRAN ABSOLUTE AUTO 0.02 K/mm3 (0.00-0.10); IMMATURE GRAN PERCENT AUTO 0 % (0-1); LYMPHOCYTES ABSOLUTE AUTO 0.55 K/mm3 (0.84-5.20); LYMPHOCYTES PERCENT AUTO 5 % (21-46); MONOCYTES ABSOLUTE AUTO 0.65 K/mm3 (0.16-1.47); MONOCYTES PERCENT AUTO 6 % (4-13); Mean Corpuscular HGB Conc 33.8 g/dL (31.5-36.5); Mean Corpuscular Volume 92 fL (80-100); Mean Platelet Volume 10.6 fL (9.1-12.4); NEUTROPHILS ABSOLUTE AUTO 8.88 K/mm3 (1.96-9.15); NEUTROPHILS PERCENT AUTO 86 % (41-73); Platelet Count 148 K/mm3 (150-400); RDW Standard Deviation 47.2 fL (35.1-46.3); Red Blood Cell Count 3.58 M/mm3 (3.80-5.20); White Blood Cell Count 10.28 K/mm3 (4.00-11.30)
[2023-09-14 22:46] LABS: Bilirubin, Urine Neg (Neg); Blood, Urine Neg (Neg); Glucose Qualitative, Urine Neg (Neg); Ketones, Urine Neg (Neg); Leukocyte Esterase, Urine Neg (Neg); Nitrite, Urine Neg (Neg); Protein, Urine Neg (Neg); Urobilinogen, Urine NORM (Normal)
[2023-09-14 22:52] LABS: Albumin, Blood 4.1 g/dL (3.4-5.0); Albumin/Globulin Ratio 1.2 (0.8-1.8); Bilirubin, Total 1.1 mg/dL (0.1-1.0); Calcium, Blood 8.7 mg/dL (8.5-10.1); Creatinine, Blood 1.55 mg/dL (0.40-1.00); Globulin, Blood 3.5 g/dL (2.2-4.0); Potassium, Blood 4.4 mmol/L (3.5-5.5); Total Protein, Blood 7.6 g/dL (6.4-8.2)
[2023-09-14 22:58] LABS: Appearance, Urine Clear (Clear); Color, Urine Pale Yellow (P-Yellow)
[2023-09-14 23:34] LABS: Influenza A, PCR NEGATIVE (NEGATIVE); Influenza B, PCR NEGATIVE (NEGATIVE); Resp Syncytial Virus, PCR NEGATIVE (NEGATIVE); SARS-Cov-2 (COVID-19) PCR, MMC NEGATIVE (NEGATIVE)
[2023-09-15 02:00] VITALS: BP 111/41
== END 2023-09-15 02:44 | disposition home or self-care (01) ==
LOC: ER 22:02
PROVIDERS: Student in an Organized Health Care Education/Training Program
DX: R50.9 Fever, unspecified (principal); Z20.822 Contact with and (suspected) exposure to COVID-19; Z88.5 Allergy status to narcotic agent; Z91.048 Other nonmedicinal substance allergy status; Z79.899 Other long term (current) drug therapy; Z79.01 Long term (current) use of anticoagulants
CPT/HCPCS: 0241U; 36415; 51701; 71045; 80053; 81003; 83605; 83880; 85025; 87040; 87077; 87186; 93005; 93010; 96365; 96374; 99284-25; A9270; J0696

== ENCOUNTER 2023-10-03 10:03 | Emergency (ER) | payer OTHER, MEDICARE ==
[~2023-10-03] VITALS: Ht 162.6 cm; Wt 67.1 kg
[2023-10-03 10:27] VITALS: BP 109/50
== END 2023-10-03 12:41 | disposition home or self-care (01) ==
LOC: ER 10:03
DX: S09.90XA Unspecified injury of head, initial encounter (principal); M25.552 Pain in left hip; M25.562 Pain in left knee; W01.0XXA Fall on same level from slipping, tripping and stumbling without subsequent striking against object, initial encounter; Y92.009 Unspecified place in unspecified non-institutional (private) residence as the place of occurrence of the external cause; Z88.5 Allergy status to narcotic agent; Z79.899 Other long term (current) drug therapy; Z79.01 Long term (current) use of anticoagulants; Z95.2 Presence of prosthetic heart valve; Z95.0 Presence of cardiac pacemaker
CPT/HCPCS: 70450; 73502; 73562-LT; 99284-25

== ENCOUNTER 2025-06-06 15:59 | Inpatient (IN) | payer MEDICARE, OTHER ==
[~2025-06-06] VITALS: Ht 162.6 cm; Wt 84.2 kg
[2025-06-06 16:54] LABS: BASOPHILS ABSOLUTE AUTO 0.02 K/mm3 (0.00-0.23); BASOPHILS PERCENT AUTO 0 % (0-2); EOSINOPHILS ABSOLUTE AUTO 0.13 K/mm3 (0.00-0.68); EOSINOPHILS PERCENT AUTO 2 % (0-6); Hematocrit 26.2 % (33.0-51.0); Hemoglobin 8.3 g/dL (11.5-16.0); IMMATURE GRAN ABSOLUTE AUTO 0.01 K/mm3 (0.00-0.10); IMMATURE GRAN PERCENT AUTO 0 % (0-1); LYMPHOCYTES ABSOLUTE AUTO 0.66 K/mm3 (0.84-5.20); LYMPHOCYTES PERCENT AUTO 12 % (21-46); MONOCYTES ABSOLUTE AUTO 0.50 K/mm3 (0.16-1.47); MONOCYTES PERCENT AUTO 9 % (4-13); Mean Corpuscular HGB Conc 31.7 g/dL (31.5-36.5); Mean Corpuscular Volume 96 fL (80-100); NEUTROPHILS ABSOLUTE AUTO 4.26 K/mm3 (1.96-9.15); NEUTROPHILS PERCENT AUTO 76 % (41-73); NRBC ABSOLUTE 0.00 K/mm3 (0.00-0.02); NRBC Auto 0.0 /100 WBC (0.0-0.2); Platelet Count 129 K/mm3 (150-400); RDW Coefficient Variation 17.5 % (11.7-14.2); RDW Standard Deviation 60.7 fL (35.1-46.3)
[2025-06-06 17:17] LABS: Alanine Aminotransfer (ALT/SGP 20.0 U/L (12-78); Albumin, Blood 3.4 g/dL (3.4-5.0); Albumin/Globulin Ratio 1.0 (0.8-1.8); Anion Gap 11.0 mmol/L (3-11); Aspartate Aminotrans (AST/SGOT 33.0 U/L (12-37); Bilirubin, Total 0.7 mg/dL (0.1-1.0); Blood Urea Nitrogen 58.0 mg/dL (8-24); CO2, Blood 19.0 mmol/L (21-32); Calcium, Blood 8.5 mg/dL (8.5-10.1); Chloride, Blood 106.0 mmol/L (98-108); Creatinine, Blood 2.7 mg/dL (0.40-1.00); Globulin, Blood 3.5 g/dL (2.2-4.0); Glucose, Blood 118.0 mg/dL (70-99); Potassium, Blood 6.8 mmol/L (3.5-5.5); Sodium, Blood 129.0 mmol/L (136-145); Total Protein, Blood 6.9 g/dL (6.4-8.2)
[2025-06-06] MEDS ORDERED: Insulin Regular 100 Unit/ML 1ML Dose IV ONE ×2 (17:30→22:35)
[2025-06-06] MEDS ORDERED: Albuterol 2.5 MG/3 ML VIAL INH ONE (19:15)
[2025-06-06] MEDS ORDERED: Ondansetron HCl 2 MG / ML 2ML Vial IV PRN (20:25)
[2025-06-06] MEDS ORDERED: Metoprolol Tartrate 1 MG/ML 5 ML VIAL IV PRN (20:30)
[2025-06-06 21:00] LABS: Prothrombin Time Results 40.5 Sec (9.7-11.5)
[2025-06-06 21:34] LABS: Anion Gap 10.0 mmol/L (3-11); Blood Urea Nitrogen 57.0 mg/dL (8-24); CO2, Blood 20.0 mmol/L (21-32); Calcium, Blood 8.6 mg/dL (8.5-10.1); Chloride, Blood 107.0 mmol/L (98-108); Creatinine, Blood 2.75 mg/dL (0.40-1.00); Glucose, Blood 65.0 mg/dL (70-99); Potassium, Blood 6.7 mmol/L (3.5-5.5); Sodium, Blood 130.0 mmol/L (136-145)
[2025-06-07] VITALS: BP 138/51
[2025-06-07 00:58] VITALS: BP 138/51
[2025-06-07 04:39] VITALS: BP 126/43
[2025-06-07 05:26] LABS: Hematocrit 27.5 % (33.0-51.0); Hemoglobin 8.6 g/dL (11.5-16.0); Mean Corpuscular HGB Conc 31.3 g/dL (31.5-36.5); Mean Corpuscular Volume 97 fL (80-100); NRBC ABSOLUTE 0.00 K/mm3 (0.00-0.02); NRBC Auto 0.0 /100 WBC (0.0-0.2); Platelet Count 118 K/mm3 (150-400); RDW Coefficient Variation 17.6 % (11.7-14.2); RDW Standard Deviation 61.4 fL (35.1-46.3)
[2025-06-07 05:53] LABS: Prothrombin Time Results 41.7 Sec (9.7-11.5)
[2025-06-07 05:59] LABS: Albumin, Blood 3.6 g/dL (3.4-5.0); Blood Urea Nitrogen 58 mg/dL (8-24); CO2, Blood 18 mmol/L (21-32); Calcium, Blood 8.6 mg/dL (8.5-10.1); Chloride, Blood 104 mmol/L (98-108); Creatinine, Blood 2.74 mg/dL (0.40-1.00); Glucose, Blood 69 mg/dL (70-99); Phosphorus, Blood 7.2 mg/dL (2.5-4.9); Sodium, Blood 127 mmol/L (136-145)
[2025-06-07 06:00] LABS: Anion Gap 12 mmol/L (3-11)
[2025-06-07 06:01] LABS: Potassium, Blood 6.7 mmol/L (3.5-5.5)
--- NOTE | 2025-06-07 06:38 | NUR ---
PT MONITORED THROUGH THE NIGHT.PT BLADDER SCANNED UPON ARRIVAL TO THE ROOM FOR NO VOID SINCE SHE RECEIVED 80MG IV LASIX IN THE ED.PT VOIDED 100ML POST BLADDER SCAN,STRAIGHT CATHED 475ML.PT HAS BEEN TRYING TO VOID SINCE 0200 BUT HAS BEEN UNSUCCESSFUL.PT BLADDER SCANNED THIS MORNING, 154ML IN BLADDER.POTASSIUM REMANS ELEVATED,THIS MORNING AT 6.7.MD NOTIFIED PER PROTOCOL,ORDERS GIVEN.BP HAS REMAINED STABLE.OXYGEN SATURATION >95% ON ROOM AIR.WOB NOTED WITH EXERTION.PT SLEEPING,EASILY AROUSABLE.COMPLAINS OF PAIN IN BLE WITH TOUCH.PT DENIES SOB,DENIES FURTHER NEEDS AT THIS TIME.CALL LIGHT AND PT'S ITEMS WITHIN REACH.BED ALARM ACTIVATED FOR PT'S SAFETY.MONITORING ONGOING PER CARE PLAN.
[2025-06-07 07:40] VITALS: BP 127/42
--- NOTE | 2025-06-07 09:00 | NUR ---
UPDATE FAMILY ASKING THIS RN ABOUT HOSPICE. PALLIATIVE CARE CALLED AND WILL COME VISIT WITH PATIENT AND FAMILY.
--- NOTE | 2025-06-07 09:52 | NUR ---
PALLIATIVE CARE CONSULT/VISIT: CONSULT RECIEVED FOR PT. FAMILY CONSIDERING HOSPICE. REVIEWED MEDICAL RECORD, SPOKE TO PRIMARY RN PRIOR TO MEETING. MET WITH FAMILY (SPOUSE, TWO DAUGHTERS AND SON IN LAW) IN THE ROOM. PT SLEPT THROUGH THE MEETING. SPOUSE STATES HE WOULD LIKE TO PLACE HIS ON HOSPICE. SPOUSE TODD STATED HIS HAS ADVANCED DEMENTIA "SHE HAS NO IDEA WHAT IS GOING ON, SHE HAS STAGE 4 KIDNEY DISEASE, SHE HAS SORES ON HER BOTTOM, SHE PUFFED UP LIKE A MARSHMALLOW AND SHE CAN'T EAT ANYMORE BECAUSE OF HER PAIN WHEN SHE EATS. I DON'T WANT HER TO GO THROUGH THIS ANYMORE. I DON'T WANT HER TO HAVE TO GO ON DIALYSIS." SPOUSE STATES HIS GOAL IS TO GET HIS HOME. HE HAS BEEN WITH HER FOR 24 YEARS AND WANTS TO CARE FOR HER. THEY LIVE IN [facility]. SPOUSE WOULD LIKE TO CONTINUE SUPPORTIVE TREATMENT LONG SHE CAN TOLERATE IT SO SHE CAN COME HOME. EDUCATED FAMILY ON WHAT HOSPICE SERVICES PROVIDE. THEY DO HAVE EXPERIENCE WITH HOSPICE SERVICES. INFORMED FAMILY CM WILL COME TO GIVE HOSPICE CHOICES. NOTIFIED CM, PRIMARY RN, AND DR. GANDARA OF FAMILY CHOICES.
--- NOTE | 2025-06-07 12:22 | NUR ---
UPDATE PT RESTING COMFORTABLY AT THIS TIME. SPOUSE ED ASKS THIS RN NOT TO TAKE BLOOD PRESSURE DUE TO THE PAIN IT CAUSES PATIENT. SPOUSE EDUCATED ON IMPORTANCE OF MONITORING BLOOD PRESSURE AND HE VERBALIZES UNDERSTANDING. SPOUSE STATES THE PLAN IS TO TAKE THE PATIENT HOME ON HOSPICE ON MONDAY AND THE GOAL IS TO KEEP HER COMFORTABLE UNTIL THEN.
[2025-06-07] MEDS ORDERED: Insulin Regular 100 UNIT/ML 10ML Vial IV ONE (12:57)
[2025-06-07] MEDS ORDERED: Morphine Sulfate 20 MG/1ML 1 ML Oral Syringe SL PRN (13:00)
[2025-06-07] MEDS ORDERED: Dextrose 50% 50 ML Vial IV ONE (13:00)
[2025-06-07] MEDS ORDERED: Atropine Sulfate 1% Opth Soln 2ML BTL SL PRN (13:00)
--- NOTE | 2025-06-07 13:09 | NUR ---
UPDATE PT FAMILY CALLED THIS RN IN TO THE ROOM AND STATES PATIENT IS RESTLESS. UPON ENTERING THE ROOM, PT IS GRIMACING AND ARMS AND LEGS ARE RESTLESS. RR IN THE MID 20'S AND PT IS WHEEZING. DR. GANDARA CALLED AND NOTIFIED. DISCUSSION WITH FAMILY THEY REQUEST COMFORT CARE. ORDERS PLACED BY DR. GANDARA. WILL MEDICATED PATIENT FOR AIR HUNGER PER EMAR. MULTIPLE FAMILY MEMBERS AT BEDSIDE.
--- NOTE | 2025-06-07 16:52 | NUR ---
SHIFT SUMMARY PT AWAKE THIS AFTERNOON AND ORIENTED TO SELF AND FAMILY. PT DENIES ANY PAIN AT THIS TIME. BREATHING IS EVEN AND UNLABORED AT THIS TIME. PT HAS EPISODES OF INCREASED WORK OF BREATHING THROUGHOUT SHIFT AND MEDICATED PER EMAR FOR AIR HUNGER. RODRIGUEZ CATHETER PLACED FAMILY AND PT REQUESTED. PT REPORTS THAT SHE DOES NOT FEEL LIKE SHE CAN GET OUT OF BED. PT REPOSITIONED Q2H. EXTREMITIES ELEVATED ON PILLOWS. SEVERAL FAMILY MEMBERS PRESENT AT BEDSIDE ALL SHIFT. PLAN IS TO DISCHARGE HOME ON HOSPICE ON MONDAY.
--- NOTE | 2025-06-07 17:38 | NUR ---
UPDATE BED ASSIGNMENT PROVIDED ON MEDICAL FLOOR. REPORT GIVEN AND PT TO BE PACKED UP AND TRANSFERRED VIA BED. FAMILY NOTIFIED OF NEW ROOM ASSIGNMENT.
--- NOTE | 2025-06-07 18:27 | NUR ---
TRANSFER RM 333 PT REPORT RECEIVED FROM NASRA GIL. PT ARRIVED VIA BED WITH FAMILY IN TOW. PT AWAKE AND INTERACTIVE. COMFORT CART MOVED WITH HER. TALKED WITH FAMILY ABOUT STAYING THE NIGHT. THEY ARE DISCUSSING TAKING SHIFTS. CARE ONGOING.
--- NOTE | 2025-06-08 04:08 | NUR ---
PT ALERT TO SELF DURING SHIFT. DNR WITH COMFORT CARE ORDERS. FAMILY AT BEDSIDE. Q 2 TURNS. ROXANOL GIVEN FOR AIR HUNGER. RODRIGUEZ IN PLACE FOR END OF LIFE CARE. BED IN LOW POSITION WITH WHEELS LOCKED. CALL LIGHT WITHIN REACH
--- NOTE | 2025-06-08 14:37 | NUR ---
PALLIATIVE CARE VISIT: SUPPORTIVE VISIT MADE. PT NON RESPONSIVE, APPEARS COMFORTABLE. PAINAD 0/10. PT LIGHTLY SMORING. SEVERAL FAMILY MEMBERS PRESENT. ARE REMINISCING AND TELLING FAMILY STORIES. QUESTIONS ARE ANSWERED ABOUT HOSPICE CARE. PLAN IS TO GO HOME IN THE MORNING AND ADMIT TO [facility]. FAMILY REPORT SYMPTOMS ARE MANAGED HAVE NO CONCERNS REGARDING PT COMFORT. PROVIDED A COMFORT QUILT AND NECK PILLOW FOR COMFORT FAMILY REPORTED PT WAS ALWAYS COLD AT HOME. FAMILY MEMBER WILL BE STAYING THE NIGHT. WENT OVER NORMAL END OF LIFE CHANGES WITH FAMILY. FAMILY CHOOSE [facility] IN EVENT PT PASSES BEFORE COMING HOME. PRIMARY RN AWARE.
--- NOTE | 2025-06-09 04:43 | NUR ---
PATIENT ALERT TO SELF. COMFORT CARE ORDERS IN PLACE. RODRIGUEZ IN PLACE. ROXANOL GIVEN. DAUGHTER, JUAN C, AT BEDSIDE. BED IS IN LOW POSITION WITH WHEELS LOCKED. CALL LIGHT WITHIN REACH
--- NOTE | 2025-06-09 07:48 | NUR ---
ASSUMPTION OF CARE: THIS RN ASSUMED CARE OF PATIENT. ASLEEP DURING SHIFT CHANGE REPORT. LYING c HOB ELEVATED. BREATHING EVEN AND UNLABORED c ROOM AIR. RODRIGUEZ PATENT AND DRAINING SMALL AMOUNT OF TEA-COLORED URINE TO GRAVITY. DAUGHTER, DAVID, AT BEDSIDE; ANXIOUS ABOUT DISCHARGE TODAY AND CONCERNED THERE WILL NOT BE ENOUGH RESOURCES. FAMILY IS HOPING TO NOT HAVE TO ADMINISTER ROXANOL AT HOME. EDUCATION PROVIDED ON HOSPICE SERVICES AND DISCUSSED HAVING TIRE WORKER DISCUSS THIS FURTHER WITH FAMILY ONCE MORE FAMILY COME IN LATER THIS MORNING. ANTICIPATE DC HOME TODAY c HOSPICE. PT USES [facility]. BED IN LOWEST POSITION. CALL LIGHT WITHIN REACH. ACUTE NEEDS MET.
--- NOTE | 2025-06-09 09:02 | NUR ---
PATIENT WAKES, SCRATCHING AT SKIN. FAMILY REPORTS Hx ALLERGY TO MORPHINE THAT INCLUDES ITCHING. NO IV ACCESS AND UNABLE TO SWALLOW PILL. WILL ATTEMPT TO OBTAIN ORDER FOR ANTIHISTAMINE.
[2025-06-09] MEDS ORDERED: DiphenhydrAMINE HCL/Zinc Acet Cream TOP ONE (10:00)
[2025-06-09] MEDS ORDERED: Benadryl Itch28.3 G1 TOP (11:55)
[2025-06-09] MEDS ORDERED: ATROPINE SULFATE2 M1 SL (11:56)
[2025-06-09] MEDS ORDERED: Ativan1 MG PO (11:56)
[2025-06-09] MEDS ORDERED: MORP20L SL (11:57)
[2025-06-09] MEDS ORDERED: TRANSDERM-SCOP1 EA13 TD (11:58)
[2025-06-09] MEDS ORDERED: DiphenhydrAMINE HCL/Zinc Acet Cream TOP PRN (14:00)
--- NOTE | 2025-06-09 14:47 | NUR ---
DISCHARGE SUMMARY: DROWSY; RESPONDS TO PAINFUL STIMULI AND SOME VERBAL STIMULI. MULITPLE FAMILY MEMBERS AT BEDSIDE TODAY. MEDICATED PRN PAIN/ANXIETY x2. PATIENT WAKES ITCHING AT SKIN; ORDER FOR BENADRYL CREAM OBTAINED. RODRIGUEZ PATENT AND DRAINING TEA-COLORED URINE TO GRAVITY. EDUCATION PROVIDED FOR FAMILY REGARDING DISEASE PROCESS AND WHAT TO EXPECT AT THIS THIS TIME. MED REC FAXED TO [facility]. [facility] WILL MEET WITH FAMILY TODAY AND PROVIDE HOSPICE MEDICATIONS. HOSPITAL BED AND BEDSIDE TABLE DELIVERED BY [facility] PRIOR TO PT DC. PATIENT DAUGHTERS PROVIDED WITH COPY OF DISCHARGE PLAN AND MEDICATION LIST. ALL QUESTIONS ANSWERED TO THE BEST OF DISCHARGING NURSE'S ABILITY. FAMILY VOICED UNDERSTANDING DISCHARGE PLAN. LEFT FLOOR WITH ALL BELONGINGS AND DISCHARGE PACKET, ESCORTED BY FAMILY MEDICAL TRANSPORTATION. TRANSPORTATION PROVIDED BY [facility], GOING HOME WITH [facility].
== END 2025-06-09 13:20 | disposition hospice, home (50) | DRG 683 ==
LOC: ER 15:59 → PCU 20:24 → ERHOLD 20:24 → MEDS 20:24 → PCU 06-07 00:02 → MEDS 06-07 18:09
PROVIDERS: Emergency Medicine; Nurse Practitioner Acute Care; ADMIT Student in an Organized Health Care Education/Training Program
DX: N17.9 Acute kidney failure, unspecified (principal); E87.1 Hypo-osmolality and hyponatremia; I48.20 Chronic atrial fibrillation, unspecified; I50.30 Unspecified diastolic (congestive) heart failure; E87.5 Hyperkalemia; Z66 Do not resuscitate; Z51.5 Encounter for palliative care; R79.1 Abnormal coagulation profile; L29.9 Pruritus, unspecified; N18.6 End stage renal disease; I27.20 Pulmonary hypertension, unspecified; D63.1 Anemia in chronic kidney disease; F03.90 Unspecified dementia, unspecified severity, without behavioral disturbance, psychotic disturbance, mood disturbance, and anxiety; F10.20 Alcohol dependence, uncomplicated; D69.6 Thrombocytopenia, unspecified; E66.01 Morbid (severe) obesity due to excess calories; I49.5 Sick sinus syndrome; K70.31 Alcoholic cirrhosis of liver with ascites; Z88.5 Allergy status to narcotic agent; Z88.8 Allergy status to other drugs, medicaments and biological substances; Z91.048 Other nonmedicinal substance allergy status; Z79.01 Long term (current) use of anticoagulants; Z79.899 Other long term (current) drug therapy; Z95.2 Presence of prosthetic heart valve; Z87.19 Personal history of other diseases of the digestive system; Z87.01 Personal history of pneumonia (recurrent); Z95.0 Presence of cardiac pacemaker; Z90.710 Acquired absence of both cervix and uterus; Z90.49 Acquired absence of other specified parts of digestive tract; Z90.722 Acquired absence of ovaries, bilateral; Z99.2 Dependence on renal dialysis; Z68.27 Body mass index [BMI] 27.0-27.9, adult
CPT/HCPCS: 36415; 71046; 80048; 80053; 80069; 82947; 83880; 84132; 84484; 85025; 85027; 85610; 93005; 93010; 94760; 96374; 99285-25; A6590; A9270; J1815; J1938